=== PATIENT | female | born 1985 | race Caucasian/White ===

== ENCOUNTER 2020-12-02 04:02 | Observation (INO) | payer BC, MEDICAID, SELFPAY ==
[2020-12-02] VITALS (20 sets, daily range): BP systolic 86–116; BP diastolic 55–82; PULSE 52–106; RESP 15–23; TEMP 36.1–37; O2SAT 91–100
[2020-12-02] MEDS: sodium chloride 0.9% 1,000 ML 100 ML IV (05:08)
--- NOTE | 2020-12-02 07:28 | PC.NURSE ---
OFF FLOOR OFF FLOOR TO OR VIA BED WITH RONDA ELIAS AT SIDE - NO DISTRESS NOTED
--- NOTE | 2020-12-02 07:34 | ANES.PREANE2 ---
Pre-Anesthetic Assessment Pre-Anesthetic Assessment: Height/Weight: Temp Pulse Resp BP Pulse Ox 97.9 F 69 18 102/61 97 12/02/20 07:15 12/02/20 07:15 12/02/20 07:15 12/02/20 07:15 12/02/20 07:15 Proposed Procedure: Operation Date: 12/02/20 08:20 Proposed Procedures p Laparoscopic Appendectomy(Not Applicable) - José Manuel Moran MD Was Beta Amador taken within 24 hours: N/A Was Clonidine taken within 24 hours: N/A Last Intake: 23:57 Social: Social History: Tobacco Packs per day: 1/ Exam: Pre-Anes Outpt Exam: alert, oriented x 3 and clear to auscultation bilaterally Airway: Submandibular: WNL Cervical ROM: WNL MP: 2 Dentition: Chipped Additional comments: very poor dentition w severe dental caries, fractured teeth and missing teeth History/ROS: No significant complaints Pulmonary: Pulmonary: None reported CV/HEM: CV/HEM: HTN : : None reported Hepatic: Hepatic: None reported GI: GI: None reported Metabolic: Metabolic: None reported Musc/skel: Musc/skel: None reported Neuropsych: Neuropsych: None reported Anesthetic Plan: ASA status: 2 Anesthesia: General Risk of > 500 ml blood loss (7ml/kg in children): No Meds/Allergies Current Medications: Current Medications Generic Name Dose Route Start Last Admin Trade Name Freq PRN Reason Stop Dose Admin Sodium Chloride 1,000 mls @ 100 m ls/hr 12/02/20 04:45 12/02/20 05:08 Sodium Chloride 0.9% IV 100 mls/hr .Q10H TOMAS Administration Data Anesthesia Cardiac Studies: No Data to Display
--- NOTE | 2020-12-02 07:41 | P.HP_ITS ---
Providers/Chief Complaint Admitting Physician: José Manuel Moran MD History of Present Illness Montserrat Vidal is a 35 year old female who was transferred from an outside facility with a diagnosis of acute appendicitis last night. Patient states that she woke up yesterday morning with right lower quadrant pain which got progressively worse during the course of the day. The pain did not radiate, worse with physical activity, no relieving factors. Patient also some nausea but denies any vomiting, constipation, diarrhea, fevers or chills. No urinary symptoms. Review of Systems General: Reports: 10 or more systems reviewed and unremarkable except in HPI and below Medications/Allergies Home Medications Medication Instructions Recorded Confirmed Last Taken Type bupropion HCl [Wellbutrin XL] 150 mg PO DAILY 12/02/20 12/02/20 12/01/20 14:00 History hydrochlorothiazide 25 mg PO DAILY 12/02/20 12/02/20 12/01/20 14:00 History prenat.vits,dimple,mln-afzv-pbbvo 1 tab PO DAILY 12/02/20 12/02/20 12/01/20 14:00 History [ Vitamin] Allergies Allergy/AdvReac Type Severity Reaction Status Date / Time No Known Allergies Allergy Verified 12/02/20 05:10 PFSH Acute PFSH: Medical History (Updated 12/02/20 @ 07:44 by José Manuel Moarn MD) Depression Ectopic Hypertension Nephrolithiasis Surgical History (Updated 12/02/20 @ 07:44 by José Manuel Moran MD) H/O laparoscopy For ectopic Vitals/I&O/Wt Last Vital Signs Temp 97.9 F 12/02/20 07:15 Pulse 69 12/02/20 07:15 Resp 18 12/02/20 07:15 BP 102/61 12/02/20 07:15 Pulse Ox 97 12/02/20 07:15 12/01/20 12/02/20 12/02/20 22:59 06:59 14:59 Intake Total 0 / 0 Balance 0 / 0 Physical Exam Narrative: EXAM NARRATIVE: HEENT: Normocephalic Eye: Sclera /conjunctiva normal Respiratory and chest: Bilateral clear breath sounds on auscultation Cardiovascular: Normal S1 and S2 heart sounds Abdomen: Soft to palpation, tender right lower quadrant, no guarding or rigidity Neurological: Oriented to place person and time Skin: Intact, no lesions appreciated on gross exam A&P Assessment and plan (1) Acute appendicitis: 35-year-old female with 24-hour history of right low quadrant pain with CT scan showing acute appendicitis Plan for laparoscopic possible open appendectomy Procedure, risks, benefits and alternatives have been discussed with the patient who wishes to proceed with surgery. Status: Acute Attestations Medical Necessity Statement*: acute appendicitis requiring surgery Coding Level of Care Code Acute Online Communications Specialist for [facility] Elaine Diagnoses Acute appendicitis K35.80
[2020-12-02] MEDS: piperacillin-tazobactam 3.375 GM in sodium chloride 0.9% (plus) 50 ML IV (07:46)
--- NOTE | 2020-12-02 08:52 | P.OP_ITS ---
Operative Report Date of procedure: December 02, 2020 Pre-op Diagnosis: Acute appendicitis Post-op Diagnosis: Acute appendicitis with a bulbous tip adherent to the cecum Procedure Done: Laparoscopic appendectomy Specimens removed/disposition: Appendix Surgeon: José Manuel Moran Anesthesia: General Condition: stable Disposition: PACU Procedure: The patient was taken to the Operating Room and intubated under general anesthesia after antibiotic had been administered. Using a 15 blade, a 1-cm infraumbilical incision was made and using open Mary technique, the peritoneal cavity was entered. A 12mm port with balloon was placed and 14 mm of pneumoperitoneum was created and 10-mm 30 degree scope was introduced. Two separate 5mm ports were placed in the left and right lower quadrant under direct visualization. The appendix was noted in the right lower quadrant and appeared acutely inflamed and the tip was bulbous and adherent to the wall of the cecum. Using Maryland forceps, an opening was made in the mesoappendix near the base of the appendix. An Endo SHILPA stapler 45mm long 3.5mm blue load was introduced to divide the appendix at it's base. Using electrocautery, the mesoappendix including the appendicular artery was divided. There was no bleeding noted and the staple line appeared intact. The right lower quadrant was irrigated with saline and an EndoCatch bag was introduced to remove the appendix. All three po rts were removed under direct visualization and there was no bleeding noted on the port sites. 10 cc of 0.5% Marcaine was infiltrated at the port sites. The fascia at the umbilical port was closed using figure of eight 0-Vicryl sutures and subcutaneous tissue was approximated using 3-0 Vicryl and skin at all 3 port sites was closed using 4-0 Monocryl and Dermabond.
--- NOTE | 2020-12-02 08:52 | P.DS_ITS ---
Discharge Providers Date of Admission: 12/02/20 04:02 Date of Discharge: December 02, 2020 Attending Provider at Admission: José Manuel Moran MD Attending Provider at Discharge: José Manuel Moran MD Diagnoses at Discharge Discharge Diagnosis (1) Acute appendicitis: Status: Acute Hospital Course Hospital Course Montserrat Vidal is a 35 year old female who was transferred from an outside facility with a diagnosis of acute appendicitis last night. Patient states that she woke up yesterday morning with right lower quadrant pain which got progressively worse during the course of the day. The pain did not radiate, worse with physical activity, no relieving factors. Patient also some nausea but denies any vomiting, constipation, diarrhea, fevers or chills. No urinary symptoms. Patient was admitted to the hospital overnight and underwent laparoscopic appendectomy. At time of discharge she was tolerating a liquid diet, vital signs are stable and her pain was well controlled with oral pain medications. Discharge Data Data Completed and Pending: Pending at discharge Category Date Time Status ES surgery / GI i mages Routine Exams 12/02/20 07:11 Ordered Vitals: Last Vital Signs Temp 97.9 F 12/02/20 07:15 Pulse 69 12/02/20 07:15 Resp 18 12/02/20 07:15 BP 102/61 12/02/20 07:15 Pulse Ox 97 12/02/20 07:15 Discharge Plan Discharge Patient Disposition: Home Condition: Stable Prescriptions: New hydrocodone-acetaminophen 5-325 mg tablet 1 tab PO Q6H PRN (Reason: pain) Qty: 20 RF: 0 Zofran 4 mg tablet 4 mg PO Q6H PRN (Reason: nausea and vomiting) Qty: 20 RF: 0 Colace 100 mg capsule 100 mg PO BID Qty: 30 RF: 0 Continued hydrochlorothiazide 25 mg Tablet 25 mg PO DAILY RF: 0 prenat.vits,dimple,yhd-exjw-mbstk Tablet 1 tab PO DAILY RF: 0 Wellbutrin XL 150 mg Tablet Extended Release 24 Hr 150 mg PO DAILY RF: 0 Discharge Orders: Discharge Order (Routine); Ordered 12/02/20 Ordered By: José Manuel Moran Referrals: José Manuel Moran MD [Physician] - (Please call Thursday to schedule a follow up appointment.) Patient Instructions: Hydrocodone/Acetaminophen (By mouth) (Vicodin, [place], Lortab), Laxative, Stool Softeners (By mouth), Ondansetron (By mouth), Appendicitis (GEN), Laparoscopic Appendectomy (DC), Opioid Safety Discharge Attestations Time Spent in Discharge Care*: less than 30 min Quality Metrics Clinical Quality Measures During this hospital stay, did patient experience: None Coding Level of Care Code Acute Chg FW DC note Diagnoses Acute appendicitis K35.80
[2020-12-02] MEDS: fentaNYL 50 mcg/mL INJ 2mL IVP ×2 (09:02→09:18)
--- NOTE | 2020-12-02 09:13 | SUR.PHASEI ---
Patient awakes easily to voice. Resp even and unlabored. Temp 97.0 per temporal scan. Warm blankets applied.
--- NOTE | 2020-12-02 09:19 | PM.PACU ---
PACU note Post-Anesthesia Exam: awake Disposition: back to floor
[2020-12-02] MEDS: sodium chloride 0.9% 1,000 ML 30 ML IV (09:27)
--- NOTE | 2020-12-02 10:05 | PC.NURSE ---
OR NOTE UP VIA JOVITA WITH TERESA RN AT SIDE - ASST X2 TO BED - ADRIEL WELL - IV PATENT TO LEFT FA - SEE SHIFT ASSESSMENT AND WOUND ASSESSMENT - BLE WITH SCD'S IN PLACE - WILL MONITOR
[2020-12-02] MEDS: HYDROcodone-acetaminophen 5-325 mg Tablet 1 TAB PO ×2 (11:21→16:57)
--- NOTE | 2020-12-02 15:23 | PC.NURSE ---
FAMILY COMPLAINT CALLED TO PTS ROOM VIA ESTRELLA GRAY - PT REMAINS UP IN CHAIR ADRIEL WELL - PTS AUNT MARKUS AT PTS SIDE - UPON ENTERING PT ROOM AUNT STATES I'M ABOUT TO RAISE HELL OVER A HIPPA VIOLATION THIS NURSE QUESTIONED BOTH PT AND FAMILY REGARDING CONCERNS - AUNT STATES SOMEONE TOLD JAZZY SHE WAS IN SURGERY AND ALL OF HER INFORMATION THIS NURSE REC'D A CALL FROM A [employer] EARLIER IN THE SHIFT WHILE THE PT WAS IN OR - PER THIS NURSE TOLD JAZZY NO INFORMATION COULD BE RELEASED REGARDING PT - ONCE PT RETURNED TO FLOOR AND WAS AWAKE - THIS NURSE INFORMED PT THAT SHE HAD A REC'D A CALL FROM [employer] BUT WAS UNABLE TO RELEASE INFORMATION TO HER DUE TO HER NAME NOT BEING LISTED ON HIPPA FORM - PT VERBALIZED UNDERSTANDING AND IN APPROX 1 HOUR CALLED OUT TO THIS NURSE WITH A LONG DISTANCE PHONE NUMBER TO BE DIALED AND TRANSFERRED TO PTS ROOM - DONE PER THIS NURSE - ABOVE STORY - VERBALLY RELAYED BACK TO AUNT AND PT - REINTERATED AGAIN TO BOTH PT AND FAMILY MEMBER THAT NO INFORMATION HAD BEEN RELEASED VIA PHONE CALL TO ANYONE REGARDING PT OR PLAN OF CARE - PT DOES VERBALLY STATE TO AUNT THAT SHE DID SPEAK TO JAZZY HERSELF POST SURGERY AND UPDATED HER TO PT PLAN OF CARE - RONDA SPANGLER LOGISTICS OFFICER MADE AWARE OF COMPLAINT
--- NOTE | 2020-12-02 15:59 | PC.NURSE ---
END OF SHIFT SUMMARY PT REMAINS UP IN CHAIR WITH FAMILY AT SIDE - ADRIEL CLEAR LIQUIDS WELL AMBULATING WELL - VOIDING WITHOUT DIFFICULTY - X3 STABS TO ABD REMAIN C/D/I WITH NO REDNESS OR DRAINAGE NOTED - WILL CONTINUE TO PLAN FOR DISCHARGE HOME THIS EVENING
--- NOTE | 2020-12-02 16:24 | PC.NURSE ---
DISCHARGE INSTRUCTIONS DISCHARGE INSTRUCTIONS GIVEN PER THIS NURSE TO BOTH PT AND AUNT - BOTH VERBALIZE UNDERSTANDING -
--- NOTE | 2020-12-05 13:55 | PC.SOCIAL ---
discharge follow up call made, patient reports she is taking medications as prescribed. patient developed a rash on her stomach last pm. advised patient to stop taking hydrocodone, using tylenol for pain. patient advised to take benadryl for itching and to apply hydrocortisone cream or benadryl cream to rash. patient denies sob. patient has called dr. draper's office regarding rash and is waiting on a call back. patient is aware of follow up appointment with dr. draper on 12-18. patient advised if she develops sob to go to the ER. patient given writers number for any questions.
== END 2020-12-02 17:01 | disposition home or self-care (01) ==
PROVIDERS: Admitting Provider Surgery; Visit Provider Surgery
PROC: 0DTJ4ZZ Resection of Appendix, Percutaneous Endoscopic Approach (ICD-10-PCS; CPT 44970; principal; 2020-12-02 08:00)
DX: K35.80 Unspecified acute appendicitis (principal); F32.9 Major depressive disorder, single episode, unspecified; I10 Essential (primary) hypertension
CPT/HCPCS: 44970; 88304; G0378; G0379; J1100; J2405; J2543; J2704; J2710; J3010; J3490; J7030

== ENCOUNTER 2020-12-10 09:24 | Outpatient (CLI) | payer BC, MEDICAID, SELFPAY ==
--- NOTE | 2020-12-10 09:33 | MR_ITS ---
WS: [id number] MRI LUMBAR SPINE NONCONTRAST HISTORY: BACK PAIN COMPARISON: 12/01/2020 CT abdomen and pelvis. TECHNIQUE: Sagittal and axial multisequence imaging is submitted. Straightening of the normal cervical lordosis with disc protrusion at C4-5. No high-grade stenosis. M ild anterior wedging of T6 and T7. Grade 2 anterolisthesis of L5 by 12.5 mm in pars defects, bilaterally at L5. Moderate lumbar levoscol iosis. This desiccation at L5-S1. The remaining disc levels are well preserved. No acute fracture in the lum bar spine. Conus terminates normally at L1-2 disc level. L1-L2: Normal. L2-L3: Normal. L3-L4: Normal. L4-L5: Mild ligamentum flavum and facet arthritis. No stenosis. L5-S1: Severe facet joint arthritis encroaching into the thecal sac. The L5 anterolisthesis is causin g significant encroachment into the subarticular recesses and foramen. Severe bilateral foraminal and subarticular recess stenosis. There is also facet joint arthritis encroaching into the central theca l sac. Mild central stenosis at the L5-S1 disc level. MR/MR lumbar spine wo con* [id number] IMPRESSION: 1. Grade 2 spondylolisthesis and spondylolysis at L5. 2. Severe bilateral subarticular and foraminal stenosis at L5-S1 and mild cent ral stenosis. 3. Moderate lumbar levoscoliosis.
== END 2020-12-10 09:25 | disposition home or self-care (01) ==
PROVIDERS: PCP Nurse Practitioner Family; Visit Provider Nurse Practitioner Family
DX: M43.16 Spondylolisthesis, lumbar region (principal); M47.816 Spondylosis without myelopathy or radiculopathy, lumbar region; M48.07 Spinal stenosis, lumbosacral region; M41.86 Other forms of scoliosis, lumbar region
CPT/HCPCS: 72148

== ENCOUNTER → 2020-12-20 13:24 | Outpatient (BNVA) | payer BC, MEDICAID, SELFPAY | PROVIDERS: PCP Nurse Practitioner Family; Referring Provider Nurse Practitioner Family; Visit Provider Orthopaedic Surgery | DX: M54.50 Low back pain, unspecified (principal); M43.17 Spondylolisthesis, lumbosacral region | CPT/HCPCS: 72110 ==

== ENCOUNTER → 2021-01-07 10:01 | Outpatient (BNVA) | payer BC, MEDICAID, SELFPAY | PROVIDERS: PCP Nurse Practitioner Family; Referring Provider Orthopaedic Surgery; Visit Provider Anesthesiology Pain Medicine | DX: G89.29 Other chronic pain (principal); M47.816 Spondylosis without myelopathy or radiculopathy, lumbar region; M54.16 Radiculopathy, lumbar region; M43.16 Spondylolisthesis, lumbar region; M79.604 Pain in right leg; M79.605 Pain in left leg; Z79.899 Other long term (current) drug therapy; F17.200 Nicotine dependence, unspecified, uncomplicated | CPT/HCPCS: 99204 ==

== ENCOUNTER → 2021-01-23 13:51 | Outpatient (BNVA) | payer BC, MEDICAID, SELFPAY | PROVIDERS: PCP Nurse Practitioner Family; Visit Provider Anesthesiology Pain Medicine | DX: M54.16 Radiculopathy, lumbar region (principal); F17.210 Nicotine dependence, cigarettes, uncomplicated | CPT/HCPCS: 64483; 64484; J1100; J3490 ==

== ENCOUNTER → 2021-02-05 10:58 | Outpatient (BNVA) | payer BC, MEDICAID, SELFPAY | PROVIDERS: PCP Nurse Practitioner Family; Visit Provider Anesthesiology Pain Medicine | DX: G89.29 Other chronic pain (principal); M47.816 Spondylosis without myelopathy or radiculopathy, lumbar region; M54.16 Radiculopathy, lumbar region; M43.16 Spondylolisthesis, lumbar region; M79.604 Pain in right leg; M79.605 Pain in left leg; F17.200 Nicotine dependence, unspecified, uncomplicated | CPT/HCPCS: 99214 ==

== ENCOUNTER 2022-10-26 18:36 | Outpatient (CLI) | payer BC, MEDICAID, SELFPAY ==
[2022-10-26] MEDS: dextrose 5%-sod chloride 0.45% 1,000 ML 125 ML IV (19:31)
[2022-10-26 19:42] VITALS: RESP 16
[2022-10-26] MEDS: HYDROmorphone 1 mg/mL INJ 1 mL IVP ×2 (19:42→23:28)
[2022-10-26] MEDS: ondansetron 2 mg/ML SDV 2 mL 4 MG IVP ×2 (19:42→23:31)
[2022-10-26 19:43] VITALS: BP 114/80; PULSE 76; RESP 19; TEMP 37.1; O2SAT 99
[2022-10-26 23:06] VITALS: BP 104/67; PULSE 62; RESP 16; TEMP 36.9; O2SAT 99
[2022-10-26 23:28] VITALS: RESP 18
[2022-10-27] VITALS (8 sets, daily range): BP systolic 96–113; BP diastolic 59–73; PULSE 48–62; RESP 15–18; TEMP 36.6–37.1; O2SAT 94–100
[2022-10-27] MEDS: dextrose 5%-sod chloride 0.45% 1,000 ML 125 ML IV (03:13)
[2022-10-27] MEDS: HYDROmorphone 1 mg/mL INJ 1 mL IVP ×2 (03:29→10:35)
[2022-10-27] MEDS: ondansetron 2 mg/ML SDV 2 mL 4 MG IVP ×2 (03:29→09:10)
[2022-10-27] MEDS: sodium chloride 0.9% 1,000 ML 30 ML IV (11:04)
--- NOTE | 2022-10-27 11:20 | PM.HP ---
Providers/Chief Complaint Admitting Physician: Neville Muhammad DO Chief Complaint: Food Bolus History of Present Illness Montserrat Vidal is a 37 year old female presents to the hospital in outside facility with a 1 day history of not being able to swallow food or saliva. She reports pain in her lower chest/epigastrium. Pain is constant and dull. Nothing makes pain better or worse. The pain does not radiate. She denies any fever, diarrhea and/or constipation Review of Systems General: Reports: 10 or more systems reviewed and unremarkable except in HPI and below Medications/Allergies Home Medications Medication Instructions Recorded Confirmed Last Taken Type prenat.vits,dimple,oqv-ijss-ugern 1 tab PO DAILY 12/02/20 10/26/22 12/01/20 14:00 History liraglutide 0.6 mg/0.1 mL (18 mg/3 1.8 mg SUBCUT DAILY 10/26/22 10/26/22 10/24/22 History mL) subcutaneous pen injector (Victoza 2-Maged) Allergies Allergy/AdvReac Type Severity Reaction Status Date / Time Alpha-Gal Allergy ADR-Gastrointestinal Verified 10/26/22 19:47 (Yvlrvnauy-Zyats-2,3-Gala Upset PFSH Acute PFSH: Medical History Depression Ectopic Hypertension Nephrolithiasis Surgical History H/O laparoscopy For ectopic S/P laparoscopic appendectomy (12/02/20) Social History Alcohol intake: never Substance/Drug Use: never Lives independently: Yes Vitals/I&O/Wt Last Vital Signs Temp 98.7 F 10/27/22 10:54 Pulse 53 L 10/27/22 10:54 Resp 18 10/27/22 10:54 BP 107/73 10/27/22 10:54 Pulse Ox 94 10/27/22 10:54 O2 Del Method Room Air 10/27/22 10:54 10/26/22 10/27/22 10/27/22 22:59 06:59 14:59 Intake Total 962.5 / 962.5 Balance 962.5 / 962.5 Weight last 48 hrs Weight 142 lb 7 oz Physical Exam Narrative: General : Patient is well developed , no acute distress, oriented x3 Head : Normal cephalic, a-traumatic. Ears : Pinnae and external canal are normal. Hearing is normal. Eyes : PERRLA, Sclera and injection are normal. No conjunctival discharge. Nose : Mucous membranes are without erythema. Throat : buccal mucosa is normal, gums are without significant recession or hypertrophy. Lungs : Equal chest rise bilaterally, no use of accessory muscles, trachea is midline. Cor : Rate and rhythm are normal. Abdomen : Soft, ND, NT, no g/r/m Extremities : No edema, no cyanosis or clubbing, dorsalis pedis pulses are present bilaterally, non-tender to palpation of calves. Upper extremities are normal bilaterally. Back : non-tender to palpation, no CVA tenderness. Neuro : CN II - XII intact, Upper and lower extremities have equal and full strength A&P Assessment and plan (1) Food bolus obstruction of intestine: Plan EGD colonoscopy The risks and benefits of the procedure, including bleeding, infection, intestinal perforation requiring surgery, missed lesion were explained to the patient. The patient is understanding of the risks and wishes to proceed. Attestations Medical Necessity Statement*: Patient will likely go home after the procedure Coding Level of Care Code 80841 Diagnoses Food bolus obstruction of intestine K56.699
--- NOTE | 2022-10-27 11:24 | ANES.PREANE2 ---
Pre-Anesthetic Assessment Height/Weight: Height 1.57 m Weight 64.609 kg Temp Pulse Resp BP Pulse Ox O2 Del Method 98.7 F 53 L 18 107/73 94 Room Air 10/27/22 10:54 10/27/22 10:54 10/27/22 10:54 10/27/22 10:54 10/27/22 10:54 10/27/22 10:54 Operation Date: 10/27/22 11:30 Proposed Procedures p EGD(Not Applicable) - Neville Muhammad DO Familial anesthetic complications: None Was Beta Amador taken within 24 hours: N/A Was Clonidine taken within 24 hours: N/A Last intake: > 8hrs Social No alcohol and No tobacco Exam alert, oriented x 3, clear to auscultation bilaterally and regular rate & rhythm Airway Mallampati: Class I Dentition: chipped Anesthetic Plan ASA status: 1 Anesthesia: General Other: RSI Risk of > 500 ml blood loss (7ml/kg in children): No Medications/Allergies Home Medications Medication Instructions Recorded Confirmed Last Taken Type prenat.vits,dimple,ngf-vqea-zjucj 1 tab PO DAILY 12/02/20 10/26/22 12/01/20 14:00 History liraglutide 0.6 mg/0.1 mL (18 mg/3 1.8 mg SUBCUT DAILY 10/26/22 10/26/22 10/24/22 History mL) subcutaneous pen injector (Victoza 2-Maged) Allergies Allergy/AdvReac Type Severity Reaction Status Date / Time Alpha-Gal Allergy ADR-Gastrointestinal Verified 10/26/22 19:47 (Mjfafusth-Vhdpx-4,3-Gala Upset Current Medications Generic Name Dose Route Start Last Admin Trade Name Freq PRN Reason Stop Dose Admin Hydromorphone HCl 1 mg 10/26/22 18:43 10/27/22 10:35 Hydromorphone 1 Mg/Ml Inj 1 Ml IVP 1 mg Q3H PRN Administration PAIN Dextrose/Sodium Chloride 1,000 mls @ 125 mls/hr 10/26/22 18:45 10/27/22 03:13 Dextrose 5%-Sod Chloride 0.45% IV 125 mls/hr .Q8H TOMAS Administration Sodium Chloride 1,000 mls @ 30 mls/hr 10/27/22 11:00 10/27/22 11:04 Sodium Chloride 0.9% IV 30 mls/hr .Q24H TOMAS Administration Ondansetron HCl 4 mg 10/26/22 18:44 10/27/22 09:10 Ondansetron 2 Mg/Ml Sdv 2 Ml IVP 4 mg Q4H PRN Administration NAUSEA AND VOMITING PFSH Anesthesia Medical History Depression Ectopic Hypertension Nephrolithiasis Surgical History H/O laparoscopy For ectopic S/P laparoscopic appendectomy (12/02/20) Social History Alcohol intake: never Substance/Drug Use: never Lives independently: Yes Data Anesthesia Cardiac Studies: No Data to Display
--- NOTE | 2022-10-27 14:36 | PM.DCS ---
Discharge Providers Date of Admission: 10/26/22 18:32 Date of Discharge: October 27, 2022 Attending Provider at Admission: Neville Muhammad DO Attending Provider at Discharge: Neville Muhammad DO Diagnoses at Discharge Discharge Diagnosis (1) Food bolus obstruction of intestine: Status: Acute Reason for Visit Reason for Visit: Food Bolus Hospital Course Hospital Course This is a very pleasant 37-year-old female who presented to the hospital with an esophageal food bolus from an outside facility. She underwent EGD with clearance of the obstructing food bolus. She was discharged home in good condition with follow-up. Physical Exam Narrative: General : Patient is well developed , no acute distress, oriented x3 Head : Normal cephalic, a-traumatic. Ears : Pinnae and external canal are normal. Hearing is normal. Eyes : PERRLA, Sclera and injection are normal. No conjunctival discharge. Nose : Mucous membranes are without erythema. Throat : buccal mucosa is normal, gums are without significant recession or hypertrophy. Lungs : Equal chest rise bilaterally, no use of accessory muscles, trachea is midline. Cor : Rate and rhythm are normal. Abdomen : Soft, ND, NT, no g/r/m Extremities : No edema, no cyanosis or clubbing, dorsalis pedis pulses are present bilaterally, non-tender to palpation of calves. Upper extremities are normal bilaterally. Back : non-tender to palpation, no CVA tenderness. Neuro : CN II - XII intact, Upper and lower extremities have equal and full strength Discharge Data Procedures Performed EGD with clearance of impacted food bolus Vitals Last Vital Signs Temp 98.3 F 10/27/22 11:57 Pulse 50 L 10/27/22 12:16 Resp 16 10/27/22 12:16 BP 99/68 10/27/22 12:16 Pulse Ox 97 10/27/22 12:16 O2 Del Method Room Air 10/27/22 12:16 O2 Flow Rate 10 10/27/22 11:57 Discharge Plan Discharge Patient Disposition: Home Condition: Stable Prescriptions: Continued prenat.vits,dimple,vqv-umyf-flfls Tablet 1 tab PO DAILY Victoza 2-Maged 0.6 mg/0.1 mL (18 mg/3 mL) Pen Injector 1.8 mg SUBCUT DAILY Discharge Orders: Discharge Order (Routine); Ordered 10/27/22 Ordered By: Neville Muhammad Referrals: Neville Mhuammad DO [Physician] - 2 weeks Discharge Diet: Advance as tolerated Discharge Activity: Resume usual activity Patient Instructions: GI Discharge Instructions, Opioid Safety Discharge Attestations Time Spent in Discharge Care*: less than 30 min Quality Metrics Clinical Quality Measures [ No reported AMI, CVA or VTE this stay] Coding Level of Care Code Acute Code for Chg Fwd Diagnoses Food bolus obstruction of intestine K56.699
--- NOTE | 2022-10-28 09:43 | ANE.PACU2 ---
Inpatient post-anesthesia follow up: Airway intact: Yes Vital signs: Temperature 98.3 F Pulse Rate 50 Respiratory Rate 16 Blood Pressure 99/68 Pulse Oximetry 97 Oxygen Delivery Me thod Room Air Oxygen Flow Rate 10 Fraction of Inspir ed Oxygen Hydration adequate: Yes Nausea and vomiting: No Pain level: 1 Mental status: Baseline
== END 2022-10-27 15:03 | disposition home or self-care (01) ==
LOC: MEDSURG 10-27 14:59 → GILAB 10-30 09:51 → MEDSURG 10-30 09:52
PROVIDERS: Visit Provider Surgery
PROC: 0DJ08ZZ Inspection of Upper Intestinal Tract, Via Natural or Artificial Opening Endoscopic (ICD-10-PCS; CPT 43235; principal; 2022-10-27 11:30)
DX: T18.128A Food in esophagus causing other injury, initial encounter (principal); I10 Essential (primary) hypertension; Y99.9 Unspecified external cause status
CPT/HCPCS: 43247; G0378; G0379; J0330; J1100; J1170; J1200; J2405; J2704; J3010; J7030; J7799

== ENCOUNTER 2022-12-05 09:07 | Day surgery (SDC) | payer BC, MEDICAID, SELFPAY ==
[2022-12-03 10:08] VITALS: BMI 26.5
[2022-12-05 09:30] VITALS: BP 94/76; PULSE 57; RESP 18; TEMP 36.2; O2SAT 100
[2022-12-05] MEDS: sodium chloride 0.9% 1,000 ML 30 ML IV (09:34)
--- NOTE | 2022-12-05 09:41 | ANES.PREANE2 ---
Pre-Anesthetic Assessment Height/Weight: Height 1.57 m Weight 65.771 kg Temp Pulse Resp BP Pulse Ox O2 Del Method 97.2 F L 57 L 18 94/76 100 Room Air 12/05/22 09:30 12/05/22 09:30 12/05/22 09:30 12/05/22 09:30 12/05/22 09:30 12/05/22 09:30 Preop Diagnosis: dysphagia Operation Date: 12/05/22 09:45 Proposed Procedures p 43899 egd w/balloon dilation R13.10(Not Applicable) - Neville Muhammad DO Familial anesthetic complications: none Was Beta Amador taken within 24 hours: N/A Was Clonidine taken within 24 hours: N/A Last intake: Intake Last Liquid Date 12/04/22 Last Liquid Time 23:45 Last Solid Date 12/04/22 Last Solid Time 20:00 Social No alcohol and No tobacco Exam alert, oriented x 3, clear to auscultation bilaterally and regular rate & rhythm Airway Submandibular: within normal limits Cervical ROM: within normal limits Mallampati: Class I Dentition: full Pulmonary None reported CV/HEM low BP None reported Hepatic None reported GI None reported Metabolic None reported Musc/skel None reported Neuropsych None reported Anesthetic Plan ASA status: 2 Anesthesia: MAC Risk of > 500 ml blood loss (7ml/kg in children): No Medications/Allergies Home Medications Medication Instructions Recorded Confirmed Last Taken Type prenat.vits,dimple,okq-fnuf-putlx 1 tab PO DAILY 12/02/20 12/03/22 11/25/22 History liraglutide 0.6 mg/0.1 mL (18 mg/3 1.8 mg SUBCUT DAILY 10/26/22 12/03/22 11/21/22 History mL) subcutaneous pen injector (Victoza 2-Maged) Allergies Allergy/AdvReac Type Severity Reaction Status Date / Time Alpha-Gal Allergy ADR-Gastrointestinal Verified 12/03/22 10:02 (Aftispkfa-Nhqpn-9,3-Gala Upset Current Medications Generic Name Dose Route Start Last Admin Trade Name Freq PRN Reason Stop Dose Admin Sodium Chloride 1,000 mls @ 30 mls/hr 12/05/22 09:30 12/05/22 09:34 Sodium Chloride 0.9% IV 12/06/22 09:29 30 mls/hr .Q24H TOMAS Administration PFSH Anesthesia Medical History Depression Ectopic Hypertension Nephrolithiasis Surgical History H/O laparoscopy For ectopic S/P laparoscopic appendectomy (12/02/20) Social History Smoking and tobacco/nicotine status: current every day tobacco/nicotine user cigarettes and e-cigarettes E-Cigarette Details: e-cigarette and with nicotine Alcohol intake: never Substance/Drug Use: never Lives independently: Yes Data Anesthesia Cardiac Studies: No Data to Display
--- NOTE | 2022-12-05 10:31 | W.PM.OPSUD ---
Surgery/Procedure H&P Update DATE OF PROCEDURE: December 05, 2022 DATE H&P PERFORMED: 11/11/22 H&P UPDATE INFORMATION: I have reviewed H&P completed within last 30 days, I have examined patient prior to procedure and No changes to prior documentation PREOP DIAGNOSIS: dysphagia PLANNED PROCEDURE: Operation Date: 12/05/22 09:45 Proposed Procedures p [id number] egd w/balloon dilation R13.10(Not Applicable) - Neville Muhammad DO
[2022-12-05 10:52] VITALS: BP 102/69; PULSE 72; RESP 20; TEMP 36.7; O2SAT 95
--- NOTE | 2022-12-05 13:51 | ANE.PACU2 ---
Inpatient post-anesthesia follow up: Airway intact: Yes Vital signs: Temperature 98.1 F Pulse Rate 72 Respiratory Rate 20 Blood Pressure 102/69 Pulse Oximetry 95 Oxygen Delivery Me thod Room Air Oxygen Flow Rate Fraction of Inspir ed Oxygen Hydration adequate: Yes Nausea and vomiting: No Pain level: 2 Mental status: Baseline
[2022-12-09 07:46] LABS: OR HCG Qualitative Urine Negative (Negative)
== END 2022-12-05 11:15 | disposition home or self-care (01) ==
PROVIDERS: Anesthesiology; PCP Nurse Practitioner Family; Visit Provider Surgery
DX: R13.10 Dysphagia, unspecified (principal); K22.2 Esophageal obstruction; K44.9 Diaphragmatic hernia without obstruction or gangrene; K26.9 Duodenal ulcer, unspecified as acute or chronic, without hemorrhage or perforation; K29.50 Unspecified chronic gastritis without bleeding; K29.80 Duodenitis without bleeding; I10 Essential (primary) hypertension
CPT/HCPCS: 43249; 81025; 84703; 88305; 88312; 88342; J1100; J2704; J7030

== ENCOUNTER 2023-05-08 09:29 | Outpatient (CLI) | payer BC, MEDICAID, SELFPAY ==
--- NOTE | 2023-05-08 09:45 | US_ITS ---
WS: [id number] RIGHT UPPER QUADRANT ULTRASOUND HISTORY: abdominal pain COMPARISON: None available. Liver: 14.0 cm in length. Normal size liver and echogenicity. No bile duct dilatation or mass. Portal Vein: Normal hepatopetal flow with monophasic waveform. Gallbladder: Normally distended with tiny small stones layering. No cholecystitis. CBD: 0.2 cm Pancreas: Normal size and echogenicity. Right kidney: 9.7 cm in length. Normal size kidney. No obstruction. There are tiny calcifications wit h shadowing in the medullary pyramids. Aorta and IVC: Unremarkable abdominal aorta and IVC. No ascites. IMPRESSION: 1. Cholelithiasis without acute cholecystitis. 2. No bile duct dilatation. 3. Nephrocalcinosis. Due to the distribution of the calcifications consider medullary sponge kidney.
== END 2023-05-08 09:30 | disposition home or self-care (01) ==
PROVIDERS: PCP Nurse Practitioner Family; Visit Provider Surgery
DX: K59.09 Other constipation (principal); K80.20 Calculus of gallbladder without cholecystitis without obstruction; E83.59 Other disorders of calcium metabolism; N29 Other disorders of kidney and ureter in diseases classified elsewhere
CPT/HCPCS: 76705

== ENCOUNTER 2023-06-09 12:15 | Day surgery (SDC) | payer BC, MEDICAID, SELFPAY ==
[2023-06-09] VITALS (15 sets, daily range): BP systolic 98–126; BP diastolic 66–85; PULSE 56–85; RESP 14–18; TEMP 36.3–36.8; O2SAT 92–100; BMI 28.5
--- NOTE | 2023-06-09 12:35 | W.PM.OPSUD ---
Surgery/Procedure H&P Update DATE OF PROCEDURE: June 09, 2023 DATE H&P PERFORMED: 06/05/23 H&P UPDATE INFORMATION: I have reviewed H&P completed within last 30 days, I have examined patient prior to procedure and No changes to prior documentation PLANNED PROCEDURE: Operation Date: 06/09/23 13:45 Proposed Procedures p Laparoscopic Cholecystectomy 28244 , K21.9, R10.9(Not Applicable) - Neville Muhammad, DO
[2023-06-09 12:36] LABS: OR HCG Qualitative Urine Negative (Negative)
[2023-06-09] MEDS: sodium chloride 0.9% 1,000 ML 30 ML IV (12:39)
--- NOTE | 2023-06-09 12:44 | ANES.PREANE2 ---
Pre-Anesthetic Assessment Height/Weight: Height 1.57 m Weight 70.76 kg Temp Pulse Resp BP Pulse Ox O2 Del Method 97.3 F L 85 16 110/74 100 Room Air 06/09/23 12:24 06/09/23 12:24 06/09/23 12:24 06/09/23 12:24 06/09/23 12:24 06/09/23 12:24 Operation Date: 06/09/23 13:45 Proposed Procedures p Laparoscopic Cholecystectomy 92289 , K21.9, R10.9(Not Applicable) - Neville Muhammad DO Last intake: Intake Last Liquid Date 06/08/23 Last Liquid Time 22:00 Last Solid Date 06/08/23 Last Solid Time 22:00 Social Tobacco Exam alert, oriented x 3, clear to auscultation bilaterally and regular rate & rhythm Airway Submandibular: within normal limits Cervical ROM: within normal limits Mallampati: Class I History/ROS No significant history except as noted Anesthetic Plan ASA status: 2 Anesthesia: General Risk of > 500 ml blood loss (7ml/kg in children): No Medications/Allergies Home Medications Medication Instructions Recorded Confirmed Last Taken Type prenat.vits,dimple,cbj-fmdi-zzcis 1 tab PO DAILY 12/02/20 06/08/23 11/25/22 History liraglutide 0.6 mg/0.1 mL (18 mg/3 1.8 mg SUBCUT DAILY 10/26/22 06/08/23 06/08/23 History mL) subcutaneous pen injector (Victoza 2-Maged) pantoprazole 40 mg tablet,delayed 40 mg PO BID 6 weeks #84 tabs 05/01/23 06/09/23 06/09/23 Rx release (Protonix) linaclotide 72 mcg capsule 72 mcg PO DAILY 30 days #30 caps 06/05/23 06/05/23 Unknown Rx (Linzess) Allergies Allergy/AdvReac Type Severity Reaction Status Date / Time Alpha-Gal Allergy ADR-Gastrointestinal Verified 06/09/23 12:32 (Zpafbofdo-Rqjrs-0,3-Gala Upset Current Medications Generic Name Dose Route Start Last Admin Trade Name Freq PRN Reason Stop Dose Admin Sodium Chloride 1,000 mls @ 30 mls/hr 06/09/23 12:30 06/09/23 12:39 Sodium Chloride 0.9% IV 06/10/23 12:29 30 mls/hr .Q24H TOMAS Administration PFSH Anesthesia Medical History Ectopic Hypertension Depression Nephrolithiasis Surgical History S/P laparoscopic appendectomy (12/02/20) H/O laparoscopy For ectopic Social History Smoking and tobacco/nicotine status: current every day tobacco/nicotine user cigarettes and e-cigarettes E-Cigarette Details: e-cigarette and with nicotine Alcohol intake: never Substance/Drug Use: never Lives independently: Yes Female Reproductive History Date of last menstrual period: 06/08/23 Data Anesthesia Cardiac Studies: No Data to Display
[2023-06-09] MEDS: scopolamine 1.5 Patch 1 PATCH TRANSDERMA (12:46)
[2023-06-09] MEDS: ceFAZolin 2,000 MG in sodium chloride 0.9% (plus) 50 ML 100 MG IV (13:21)
[2023-06-09] MEDS: lidocaine-epi 2% PF 1:200,000 20 mL SDV XX (13:52)
--- NOTE | 2023-06-09 14:20 | P.OP_ITS ---
Operative Report Date of procedure: June 09, 2023 Surgeon: Neville Muhammad DO Brief History: This very pleasant 38-year-old female presented my office with symptomatic cholelithiasis. Laparoscopic cholecystectomy was indicated. The risk and benefits were explained and documented. Procedure: Preoperative diagnosis: Symptomatic cholelithiasis Postoperative diagnosis: Same Procedure performed: Laparoscopic cholecystectomy Surgeon: Dr. Neville Muhammad DO Estimated blood loss: 5 mL Specimens: Gallbladder to pathology Complications: None apparent Description of procedure: Patient was wheeled into the operative room and placed on the OR table in a supine position. Abdomen was inspected prepped and draped in usual sterile fashion. Time-out was performed and all present were in agreement. A 15 blade scalp was used to make a stab incision in the left upper quadrant and intra- abdominal insufflation was achieved using a Veress needle. After localizing the tissue incisions were made and a 5 millimeter trocar was placed into the umbilicus as well as 2 in the right upper quadrant. A 12 millimeter trocar was placed in the epigastrium. Gallbladder was grasped and elevated. The triangle of Calot was carefully dissected using blunt dissection and electrocautery until the triangle of Calot clearly identified. The cystic duct was clipped proximally and double clipped distally. The duct was then ligated proximally. The cystic artery was doubly clipped and ligated. The gallbladder was then removed from the liver bed using electrocautery. The gallbladder was removed from the abdomen using an Endo-Catch bag through the epigastric incision. The liver bed was inspected and no bleeding was seen. The abdomen was irrigated and suctioned. All ports removed. Skin was washed and dried. Incisions were closed with 4-0 Monocryl in a subcuticular interrupted fashion. Skin glue was applied. Patient tolerated the procedure well.
[2023-06-09] MEDS: fentaNYL 50 mcg/mL INJ 2mL IVP (14:53)
--- NOTE | 2023-06-09 15:09 | ANE.PACU2 ---
Inpatient post-anesthesia follow up: Vital signs: Temperature 98.3 F Pulse Rate 62 Respiratory Rate 17 Blood Pressure 119/71 Pulse Oximetry 98 Oxygen Delivery Me thod Room Air Oxygen Flow Rate 6 Fraction of Inspir ed Oxygen Hydration adequate: Yes Nausea and vomiting: No Pain level: Other (controlled) Mental status: Baseline Additional Comments: no apparent anesthetic complications noted
--- NOTE | 2023-06-09 15:10 | ANE.PACU2 ---
Inpatient post-anesthesia follow up: Vital signs: Temperature 98.3 F Pulse Rate 62 Respiratory Rate 17 Blood Pressure 119/71 Pulse Oximetry 98 Oxygen Delivery Me thod Room Air Oxygen Flow Rate 6 Fraction of Inspir ed Oxygen Hydration adequate: Yes Nausea and vomiting: No Mental status: Baseline Additional Comments: no apparent anesthetic complications noted
[2023-06-09] MEDS: HYDROcodone-acetaminophen 7.5-325 mg Tablet 1 TAB PO (15:30)
== END 2023-06-09 16:15 | disposition home or self-care (01) ==
PROVIDERS: Anesthesiology; PCP Nurse Practitioner Family; Visit Provider Surgery
PROC: 0FT44ZZ Resection of Gallbladder, Percutaneous Endoscopic Approach (ICD-10-PCS; CPT 47562; principal; 2023-06-09 13:35)
DX: K81.1 Chronic cholecystitis (principal); I10 Essential (primary) hypertension; F32.A Depression, unspecified; F17.290 Nicotine dependence, other tobacco product, uncomplicated
CPT/HCPCS: 47562; 81025; 84703; 88304; J0690; J1100; J1200; J1885; J2250; J2405; J2704; J3010; J3490; J7030